=== PATIENT | female | born 1965 | race Caucasian/White ===

== ENCOUNTER 2024-09-06 10:18 | Emergency (ER) | payer MEDICAID ==
[~2024-09-06] VITALS: Ht 162.6 cm; Wt 54.5 kg
[2024-09-06] MEDS ORDERED: KEN0.1O TOP (11:15)
[2024-09-06 11:35] VITALS: BP 117/89; PULSE 67; RESP 16; TEMP 97.9; O2SAT 99
== END 2024-09-06 11:36 | disposition home or self-care (01) ==
LOC: ER 10:18
DX: L40.9 Psoriasis, unspecified (principal); Z79.899 Other long term (current) drug therapy
CPT/HCPCS: 99283

== ENCOUNTER 2024-09-06 18:00 | Emergency (ER) | payer MEDICAID ==
[~2024-09-06] VITALS: Ht 165.1 cm; Wt 49.1 kg
[~2024-09-06 18:00] MED LIST: KEN0.1O TOP
[2024-09-06 22:06] VITALS: BP 147/91; PULSE 99; O2SAT 99
[2024-09-06 22:55] VITALS: RESP 15
[2024-09-06] MEDS: magnesium hydroxide 30ml (MOM) UD suspension PO ONE (23:32)
[2024-09-06 23:33] VITALS: TEMP 97.2
== END 2024-09-07 00:15 | disposition home or self-care (01) ==
LOC: ER 18:00
DX: T65.891A Toxic effect of other specified substances, accidental (unintentional), initial encounter (principal); Z59.00 Homelessness unspecified; Z79.899 Other long term (current) drug therapy; Y92.89 Other specified places as the place of occurrence of the external cause
CPT/HCPCS: 99285